=== PATIENT | male | born 2000 | race Caucasian/White ===

== ENCOUNTER 2021-04-06 20:12 | Emergency (ER) | payer OTHER ==
[~2021-04-06] VITALS: Ht 180.3 cm; Wt 84.7 kg
[2021-04-06] MEDS ORDERED: DIPH25CA32 PO (20:26)
[2021-04-06] MEDS ORDERED: predniSONE 20 MG TAB PO ONE (21:05)
[2021-04-06] MEDS ORDERED: PRED20TA PO (21:44)
[2021-04-06] MEDS ORDERED: OLOP2.5D3 OP (21:44)
[2021-04-06 22:24] VITALS: BP 132/78
== END 2021-04-06 22:25 | disposition home or self-care (01) ==
LOC: M ED 20:12
DX: T78.40XA Allergy, unspecified, initial encounter (principal); L29.9 Pruritus, unspecified
CPT/HCPCS: 99283; J7512

== ENCOUNTER 2021-08-19 08:02 | Inpatient (IN) | payer OTHER ==
[~2021-08-19] VITALS: Ht 180.3 cm; Wt 89.8 kg
[~2021-08-19 08:02] MED LIST: DIPH25CA32 PO; OLOP2.5D3 OP; PRED20TA PO
--- OUTSIDE RECORDS SUMMARY | 2021-08-19 08:54 | CCD ---
Author Author [facility] Organization [facility] Address Unknown Phone Unavailable Support Name Relationship Address Phone [facility] Next Of Kin [address] [place] [address] Unavailable [employer] Next Of Kin [address] [place], [place] [id number] [employer] [facility] [address] [facility] [place] [address] Unavailable Re-disclosure Warning The records that you are about to access may contain information from federally-assisted alcohol or drug abuse programs. If such information is present, then the following federally mandated warning applies: This information has been disclosed to you from records protected by federal confidentiality rules (42 CFR part 2). The federal rules prohibit you from making any further disclosure of this information unless further disclosure is expressly permitted by the written consent of the person to whom it pertains or as otherwise permitted by 42 CFR part 2. A general authorization for the release of medical or other information is NOT sufficient for this purpose. The Federal rules restrict any use of the information to criminally investigate or prosecute any alcohol or drug abuse patient.The records that you are about to access may contain highly sensitive health information, the redisclosure of which is protected by Article 27-F of the [facility] Public Health law. If you continue you may have access to information: Regarding HIV / AIDS; Provided by facilities licensed or operated by the [facility] Office of Mental Health; or Provided by the [facility] Office for People With Developmental Disabilities. If such information is present, then the following [facility] mandated warning applies: This information has been disclosed to you from confidential records which are protected by state law. State law prohibits you from making any further disclosure of this information without the specific written consent of the person to whom it pertains, or as otherwise permitted by law. Any unauthorized further disclosure in violation of state law may result in a fine or [place] [facility] sentence or both. A general authorization for the release of medical or other information is NOT sufficient authorization for further disc losure. Immunizations Vaccine Date Status Description Data Source(s) COVID-19 VACCINE Moderna 03/12/2021 12:00:00 AM EDT completed [facility] Vaccine Series Complete: YESThis Data wa s Submitted to [facility] Via [employer]. COVID-19 VACCINE Moderna 02/12/2021 12:00:00 AM EDT completed [facility] Vaccine Series Complete: NOThis Data was Submitted to [facility] Via [employer]. Medications No Information Insurance Providers Payer name Policy type / Coverage type Policy ID Covered libertarian ID Covered libertarian's relationship to walker Policy Walker Plan Information [facility] ACTIVE DUTY [id number] Problems, Conditions, and Diagnoses No Information Surgeries/Procedures No Information Results No Information Social History No Information
[2021-08-19 10:31] LABS: HEMATOCRIT 44.5 % (42.0-52.0); HEMOGLOBIN 15.1 g/dl (13.5-17.5); MEAN CORPUSCULAR HEMOGLOBIN 30.5 pg (27.0-33.0); MEAN CORPUSCULAR HGB CONC 33.9 g/dl (32.0-36.5); MEAN CORPUSCULAR VOLUME 89.9 fl (80.0-96.0); PLATELET COUNT, AUTOMATED 171 10^3/uL (150-450); RED BLOOD COUNT 4.95 10^6/uL (4.30-6.10); WHITE BLOOD COUNT 3.9 10^3/uL (4.0-10.0)
[2021-08-19 10:51] LABS: AMPHETAMINES LEVEL URINE NEGATIVE (NEGATIVE); BARBITURATES URINE NEGATIVE (NEGATIVE); BENZODIAZEPINES URINE NEGATIVE (NEGATIVE); CANNABINOIDS URINE NEGATIVE (NEGATIVE); COCAINE METABOLITE URINE NEGATIVE (NEGATIVE); METHADONE URINE NEGATIVE (NEGATIVE); OPIATES URINE NEGATIVE (NEGATIVE); PHENCYCLIDINE URINE NEGATIVE (NEGATIVE)
[2021-08-19 11:11] LABS: ALBUMIN 4.3 GM/DL (3.2-5.2); ALT/SGPT 40 U/L (12-78); BILIRUBIN,DIRECT 0.2 MG/DL (0.0-0.2); BILIRUBIN,TOTAL 0.7 MG/DL (0.2-1.0); BLOOD UREA NITROGEN 9 MG/DL (7-18); CALCIUM LEVEL 9.3 MG/DL (8.5-10.1); CARBON DIOXIDE LEVEL 30 MEQ/L (21-32); CHLORIDE LEVEL 104 MEQ/L (98-107); ETHYL ALCOHOL (ETHANOL) < 0.003 % (0.000-0.010); GLUCOSE, FASTING 105 MG/DL (70-100); POTASSIUM SERUM 4.6 MEQ/L (3.5-5.1); SALICYLATE LEVEL < 1.7 MG/DL (5.0-30.0); SODIUM LEVEL 140 MEQ/L (136-145); TOTAL PROTEIN 7.7 GM/DL (6.4-8.2)
[2021-08-19 11:12] LABS: ACETAMINOPHEN LEVEL < 2.0 UG/ML (10.0-30.0)
[2021-08-19] MEDS ORDERED: ACETAMINOPHEN TAB 650MG DOSE (2X325MG) PO PRN (13:35)
[2021-08-19] MEDS ORDERED: MOM 30ML SUSPENSION UDC PO PRN (13:35)
[2021-08-19] MEDS ORDERED: MAALOX 30 ML SUSP *UDC PO PRN (13:35)
[2021-08-19] MEDS ORDERED: traZODone 50 MG TAB PO PRN (13:35)
--- OUTSIDE RECORDS SUMMARY | 2021-08-19 13:40 | CCD ---
Author Author [facility] Organization [facility] Address Unknown Phone Unavailable Support Name Relationship Address Phone [facility] Next Of Kin [address] [place] [address] Unavailable [employer] Next Of Kin [address] [place], [place] [id number] [employer] [facility] [address] [place] [address] Unavailable Re-disclosure Warning The records that you [...] is protected by Article 27-F of the [facility] Public Health law. If you continue you may have access to information: Regarding HIV / AIDS; Provided by facilities licensed or operated by the [facility] Office of Mental Health; or Provided by the [facility] Office for People With Developmental Disabilities. If such information is present, then the following [facility] mandated warning applies: This information has been [...] law may result in a fine or [facility] sentence or both. A general authorization for the release of medical or other information is NOT sufficient authorization for further disc losure. Immunizations Vaccine Date Status Description Data Source(s) COVID-19 VACCINE Moderna 03/12/2021 12:00:00 AM EDT completed [facility] Vaccine Series Complete: YESThis Data wa s Submitted to [facility] Via [employer]. COVID-19 VACCINE Moderna 02/12/2021 12:00:00 AM EDT completed [facility] Vaccine Series Complete: NOThis Data was Submitted to [facility] Via [employer]. Medications No Information Insurance Providers Payer name Policy type / Coverage type Policy ID Covered alliance party ID Covered alliance party's relationship to walker Policy Walker Plan Information [facility] ACTIVE DUTY [id number] Problems, Conditions, and Diagnoses No Information Surgeries/Procedures No Information Results No Information Social History No Information
[2021-08-19] MEDS ORDERED: HOME MED LIST COMPLETE! XX SCH (13:45)
[2021-08-19 16:59] LABS: RSV AMPLIFICATION NEGATIVE (NEGATIVE)
[2021-08-20 07:04] VITALS: BP 135/61
[2021-08-20] MEDS: SERTRALINE HCL 50 MG TAB PO SCH (07:57)
--- NOTE | 2021-08-20 11:15 | HPEPDOC ---
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 Patient did not have a plan to harm himself. Patient denies homicidal ideations. Patient denies past suicidal ideation or past suicide attempt. Patient states that his fiance had a possible tumor on her spine which turned out to be a cyst and his mother has Lyme disease and Covid which is causing him increased stress. Patient denies any medical complaints at this [facility]. Patient does have a history of a stress fracture in his ankle. PAST MEDICAL HISTORY: Denies any medical history PAST SURGICAL HISTORY: Denies any surgical history SOCIAL HISTORY: Denies smoking cigarettes, drinking alcohol, or using illicit drugs. 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 REVIEW OF SYSTEMS: General: Patient denies fevers HEENT: Patient denies headaches Cardiovascular: Patient denies chest pain Respiratory: Patient denies shortness of breath, cough GI: Patient denies abdominal pain, nausea, vomiting, diarrhea : Patient denies increased frequency or pain with urination Extremities: Patient denies swelling or pain in extremities Neurological: Patient denies numbness or tingling in legs Skin: Patient denies any new rashes or lesions. Hematologic: Patient denies any easy bruising. Lymphatic: Patient denies any lumps lumps or bumps in neck, axilla, or groin HOME MEDICATIONS: Please see below. PHYSICAL EXAMINATION: VITAL SIGNS: Temperature 98.2, pulse 56, respiratory rate 16, blood pressure 135/619, pulse oximetry 96% on room air. General: Alert and oriented male patient who was laying in his room when I walked in. Patient does walk to the examination room without any difficulty. Patient did not appear to be in any acute distress. HEENT: Normocephalic, atraumatic, moist mucous membranes. Neck: No lymphadenopathy or thyromegaly Cardiac: Regular rate and rhythm, no murmurs, normal S1, normal S2 Pulm: Clear to auscultation bilaterally. No wheezes, rhonchi, rales Abd: Nondistended, nontender to palpation, normal bowel sounds Ext: No edema bilateral lower extremities Neuro: Patient was able to move all 4 extremities on command and reported equal sensation light touch in all 4 extremities. Skin: Skin of the head, neck, upper and lower extremities was examined did not show any evidence of rash or wounds. LABORATORY DATA: See below. IMAGING: No imaging has been performed MICROBIOLOGY: Please see below. ASSESSMENT: 21-year-old male presented to the inpatient mental health unit for suicidal ideations. . PLAN: 1. Depression. Continue the treatment per psychiatry. Patient states he is not currently having suicidal thoughts. 2. Stress fracture of the ankle. Continue activities prescribed by outpatient providers. Disposition: Patient will be discharged per psychiatry. Please reconsult hospitalist if the need arises. Thank you for this consult. Vital Signs Vital Signs Date Time Temp Pulse Resp B/P (MAP) Pulse Ox O2 Delivery O2 Flow Rate FiO2 08/20/21 07:04 98.2 56 16 135/61 (85) 08/19/21 08:09 96 Laboratory Data Labs 24H Laboratory Tests 2 08/19/21 15:48: Coronavirus (COVID-19)(PCR) NEGATIVE, Influenza Type A (RT-PCR) NEGATIVE, Influenza Type B (RT-PCR) NEGATIVE, Respiratory Syncytial Virus (PCR) NEGATIVE Home Medications No Active Prescriptions or Reported Meds Allergies Coded Allergies: No Known Allergies (Unverified , 04/06/21) A-FIB/CHADSVASC A-FIB History Current/History of A-Fib/PAF?: No DEDE WATTERS DO Aug 20, 2021 11:15
[2021-08-20 16:26] VITALS: BP 134/71
[2021-08-21 07:11] VITALS: BP 139/62
[2021-08-21] MEDS: SERTRALINE HCL 50 MG TAB PO SCH (08:26)
--- NOTE | 2021-08-21 12:12 | MHIPNPDOC ---
[facility] Progress Note Progress Note DATE OF SERVICE: 08/21/21 HISTORY: He says he feels well, he couldn't sleep well last night. Appetite is fine. Low energy levels, lacks motivation, attentionand concentration are poor, has guilty thoughts, denies feeling hopeless or helpless.Denies suicidal ideation VITAL SIGNS: See below. NEW TEST RESULTS: See below CURRENT MEDICATIONS: See below. MENTAL STATUS EXAMINATION: General Appearance: well groomed, appears stated age, hospital scubs/clothing Build: average Demeanor: average Eye Contact: average Activity: average Behavior: cooperative Speech: clear, spontaneous, reg/rate,rhythm,volume Mood: depressed, slightly irritable Affect: appropriate, congruent Thought Process: logical/linear Thought Content (Delusions): none reported Thought Content (Other): none reported Thought Content (Aggressive): none reported Perception (Hallucinations): none reported Perception (Other): none reported Cognition (Impairment of): none reported Cognition(Intelligence Est.): average Oriented: Awake, Alert, Oriented times three Insight: fair Judgment: Fair Psychosis: Denies Diagnoses 1. Major Depressive Disorder, recurrent, moderate 2. Generalized Anxiety Disorder 3. Unspecified trauma/stressor related disorder ASSESSMENT: He seems a little irritable this morning, he says he has not had SI since the beginning of last week. He says his fiancee helps him when he feels this way and he is not able to talk to her as much in these days. He thinks getting a Therapist. MANAGEMENT PLAN: As before TIME SPENT: 12 minutes. Vital Signs Vital Signs Date Time Temp Pulse Resp B/P (MAP) Pulse Ox O2 Delivery O2 Flow Rate FiO2 08/21/21 07:11 98.5 57 16 139/62 (87) 97 08/20/21 16:26 Room Air Current Medications Current Medications Medications (Trade) Dose Ordered Sig/Frank Route PRN Reason Start Time Stop Time Status Last Admin Dose Admin Acetaminophen (Tylenol Tab) 650 mg Q6HP PRN PO HEADACHE or MILD DISCOMFORT 08/19/21 13:35 Al Hydrox/Mg Hydrox/Simethicone (Mylanta) 30 ml Q4HP PRN PO HEARTBURN/INDIGESTION 08/19/21 13:35 Home Med (Home Med List Complete!) ASDIRECTED XX 08/19/21 13:45 08/19/21 13:43 DC Magnesium Hydroxide (Milk Of Magnesia) 30 ml DAILYPRN PRN PO CONSTIPATION 08/19/21 13:35 Sertraline HCl (Zoloft) 50 mg DAILY PO 08/20/21 09:00 08/21/21 08:26 Trazodone HCl (Desyrel) 50 mg QHSP PRN PO INSOMNIA 08/19/21 13:35 Allergies Coded Allergies: No Known Allergies (Unverified , 04/06/21) TAVARES HAYNES MD Aug 21, 2021 12:12
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
[2021-08-21 16:24] VITALS: BP 140/79
[2021-08-22 06:57] VITALS: BP 123/60
[2021-08-22] MEDS: SERTRALINE HCL 50 MG TAB PO SCH (08:45)
[2021-08-22] MEDS ORDERED: SERT50TA29 PO (10:12)
--- NOTE | 2021-08-22 11:54 | MHDSPDOC ---
[facility] Discharge Summary Discharge Summary DATE OF ADMISSION: Aug 19, 2021 at 13:32 DATE OF DISCHARGE: August 22, 2021 at 1132 DISCHARGE DIAGNOSES: 1. Major Depressive Disorder, recurrent, moderate 2. Generalized Anxiety Disorder 3. 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 Pt reports that he has a very supportive family however, they all live in [place]. Pt reports increased depression due to his fiances recent tumor diagnosis. Pt reports that today his fiance will find out if this tumor is cancerous or not. Pt reports that his fiance has been very depressed and has voiced SI which has caused him to also feel down and have feelings of SI with no plan. Pt reports that he feels as though this is related to not being able to be with his fiance or with his mother who is currently in quarantine with COVID and has also been dx with Grindstone disease. Pt reports that he also has a significant amount of work stress and states that he constantly feels pulled in multiple directions and has to stay extra hours at work to complete his duties. Pt reports that often he suffers from insomnia and states that he hasn't slept in days. Pt also reports that he has a poor appetite and s tates that he feels very anxious. Pt states "I feel full even when I haven't eaten and sometimes my stomach matt when I do end up eating; I know it's got to be my nerves". Pt denies HI/Self Inj/AH/VH. Pt does not appear to be psychotic at this time." VITAL SIGNS: See below. CONSULTANTS INVOLVED: See Medical H + P by Hospitalist TREATMENT AND PROGRESS ON THE UNIT: Patient was admitted to the [facility] on a legal status was afforded the following treatment modalities: 1) Individual Therapy 2) Group Therapy 3) Medication Management 4) Milieu Therapy 5) Safe Environment HOSPITAL COURSE: Patient was admitted to [facility] on a legal status. Patient was started on Zoloft 50 mg - he found medications beneficial and tolerated them well. Mood, anxiety, and intrusive thoughts improved with treatment. Pt attended groups daily during stay. Pts symptoms improved with treatment. On day of discharge pt. denied depression, anxiety, insomnia, SI/HI, hallucinations, delusions. Pt was discharged home with follow-up for [facility]. Pt felt safe for discharge. DISCHARGE ASSESSMENT: In today's interview, patient is alert and oriented, pt.s dress is appropriate. Hygiene and grooming is well-kempt. Smiles on approach and is pleasant and engaged in the interview. Denies depression and anxiety. Patient had reported that he had suicidal ideations but had no real intent to harm himself. He had reported to his leadership about these thoughts and they insisted that he be evaluated. Patient reports that number of stressors including his fiance who has bipolar disorder and was fearful that she had a tumor in her spine. He states today that she had a tertiary opinion -it was a cyst and it was removed on Sunday. He states that he has been worried about his mother who has Lyme disease and also Covid. He reports that he does feel improved, and again denies suicidal and homicidal ideation, planning or intent. Denies and is not observed with too, psychotic symptoms of delusions, bizarre thinking, obsessions, paranoia, ruminations illogical thoughts, flight of ideas or having poor insight and judgement. Reinforced with patient need to abstain from alcohol and drugs - he denies any use of cigarettes or alcohol or drugs. At discharge patient has normal mentation, declines further hospitalization on a voluntary status and meets criteria for discharge today. Discussed indications of medications, potential benefits and risks, alternatives (including no treatment) and questions were encouraged and answered. Patient encouraged to return to hospital if symptoms worsen or change and encouraged to call unit if he/she/they needs to speak to provider for questions regarding medications or care. MENTAL STATUS EXAMINATION ON DISCHARGE: Patient is a 21 -year-old Single, active duty, , male, who reported having suicidal ideations but states he had no intent. He reported this to his leadership and he insisted that he be evaluated. Speech: Is fluid, conversant, normal rate, tone and volume Language skills are intact Thought processes including: linear and goal oriented Thought content: denies depression and anxiety. Denies suicidal/homicidal ideation, planning or intent. Abstract reasoning, and computation: fair Description of associations: denies, none observed Description of abnormal or psychotic thoughts: denies, none observed. Judgment: fair Insight: fair Orientation: alert and oriented to person, place, time and situation Recent and remote memory: intact Attention span and concentration: good Language: expansive Fund of knowledge: average Mood: Euthymic Mood Affect: reactive Suicide Risk Assessment: 1) Does the patient wish to be ? No 2) Since your admission, have you had any actual thought of killing yourself? No 3) Since your admission, have you been thinking about how you might do this? No 4) Since your admission, have you had these thoughts and had some intention of acting on them? No 5) Since your admission, have you started to work out or worked out the details of how to kill yourself? No 5A) Do you intent to carry out this plan? No and NA 6) Have you ever done anything, started anything, or prepared to do anything with any intent to ? No 6A) How long since your admission did you do any of these? NA MEDICATIONS ON DISCHARGE: See Medication Reconciliation PLAN/FOLLOWUP ARRANGEMENTS: Patient is being discharged with chain of command he will be following up at [facility] The amount of time spent in the coordination of care for this patient was approximately 20 minutes. ETOH/Disorder Med Rx ETOH/DRUG DISORDER RX: N/A Vital Signs/I&Os Vital Signs Date Time Temp Pulse Resp B/P (MAP) Pulse Ox O2 Delivery O2 Flow Rate FiO2 08/22/21 06:57 98.4 63 16 123/60 (81) 99 Room Air Medications Scheduled Sertraline HCl (Sertraline HCl) 50 Mg Tablet, 50 MG PO DAILY for Depression, #7 Allergies Coded Allergies: No Known Allergies (Unverified , 04/06/21) DEMAR BURGESS NP Aug 22, 2021 11:54
== END 2021-08-22 13:11 | disposition home or self-care (01) | DRG 885 ==
LOC: M ED 08:02 → M ED INP 13:32 → M PSY 18:09
PROVIDERS: ADMIT Psychiatry & Neurology Psychiatry; ATTEND Psychiatry & Neurology Psychiatry
DX: F33.1 Major depressive disorder, recurrent, moderate (principal); R45.851 Suicidal ideations; F41.1 Generalized anxiety disorder